=== PATIENT | male | born 1955 | race Caucasian/White ===

== ENCOUNTER 2018-02-04 11:26 | Emergency (ER) | payer OTHER ==
[2018-02-04] MEDS ORDERED: NA CHLORIDE 0.9% 1,000 ML ONE (12:04)
[2018-02-04 12:28] LABS: Absolute Monocytes 0.8 K/uL (0.1-1.3); Absolute Neutrophil 7.6 K/uL (1.8-8.0); Basophils % 0.7 % (0-1.3); Eosinophils % 0.2 % (0-4.4); Hematocrit 49.1 % (39.6-49.0); Lymphocytes % 10.8 % (15.3-44.8); MCH 32.9 pg (27.0-35.0); MCV 94.1 fL (80-100); MPV 9.1 fL (7.6-11.3); RBC Red Blood Cell Count 5.22 M/uL (4.33-5.43)
--- NOTE | 2018-02-04 12:33 | EKG ---
Test Date: 2018-02-04 Test Time: 12:01:13 Hide Salter: [place] MEASUREMENT RESULTS: Intervals: Rate: 103 PA: 148 QRSD: 76 QT: 310 QTc: 406 [place]: P: 64 PA: 148 QRS: 43 T: 87 INTERPRETIVE STATEMENTS: Sinus tachycardia Nonspecific T wave abnormality Abnormal ECG Compared to ECG 07/07/1993 21:32:00 T-wave abnormality now present Sinus rhythm no longer present ST (T wave) deviation no longer present Electronically Signed On 02-04-18 12:32:34 [employer]ER by Jose Luna
[2018-02-04 12:50] LABS: BUN Blood Urea Nitrogen 11 mg/dL (7-18); Bicarbonate 26 mmol/L (21-32); Glucose Level 280 mg/dL (74-106); Sodium Level 139 mmol/L (136-145); Troponin (Emerg Dept Use Only) < 0.02 ng/mL (0.0-0.045)
[2018-02-04] MEDS ORDERED: cloNIDine HCl 0.1 MG TAB ONE ×2 (13:09→14:53)
--- NOTE | 2018-02-04 15:40 | ER ---
Nurse's Notes [facility] Name: Hansel Mcgrath Age: 62 yrs Sex: Male : 1955 Arrival Date: 02/04/2018 Time: 11:32 Bed 18 Private MD: Diagnosis: Hypertension;Hyperglycemia, unspecified;Diabetes Presentation: 02/04 11:35 Presenting complaint: Patient states: Reports fatigue for 2 weeks. Went to be cleared aj to return to work and was sent to ER for HTN, elevated FSBS, and abnormal EKG. Transition of care: patient was not received from another setting of care. Onset of symptoms was January 21, 2018. Risk Assessment: Do you want to hurt yourself or someone else? Patient reports no desire to harm self or others. Initial Sepsis Screen: Does the patient meet any 2 criteria? No. Patient's initial sepsis screen is negative. Does the patient have a suspected source of infection? No. Patient's initial sepsis screen is negative. Care prior to arrival: None. 11:35 Method Of Arrival: Ambulatory 11:35 Acuity: DEBORAH 2 aj Triage Assessment: 11:37 General: Appears in no apparent distress. comfortable, Behavior is cooperative, aj anxious. Pain: Denies pain. Neuro: Level of Consciousness is awake, alert, obeys commands, Oriented to person, place, time, situation, Appropriate for age. Respiratory: Airway is patent Respiratory effort is even, unlabored, Respiratory pattern is regular, symmetrical. : No signs and/or symptoms were reported regarding the genitourinary system. Derm: Skin is intact, is healthy with good turgor, Skin is pink, warm \T\ dry. normal. Historical: - Allergies: 11:37 No Known Allergies; aj - Home Meds: 11:37 None [Active]; aj - PMHx: 11:37 None; aj - PSHx: 11:37 Right leg; aj - Immunization history:: Adult Immunizations up to date. - Social history:: Smoking status: Patient/guardian denies using tobacco, Patient uses alcohol, on a daily basis. - Ebola Screening: : Patient negative for fever greater than or equal to 101.5 degrees Fahrenheit, and additional compatible Ebola Virus Disease symptoms Patient denies exposure to infectious person Patient denies travel to an Ebola-affected area in the 21 days before illness onset No symptoms or risks identified at this time. - Family history:: not pertinent. - Hospitalizations: : No recent hospitalization is reported. Screenin:40 Abuse screen: Denies threats or abuse. Denies injuries from another. Nutritional hj screening: No deficits noted. Tuberculosis screening: No symptoms or risk factors identified. Fall Risk None identified. Assessment: 11:42 General: Appears in no apparent distress. uncomfortable, Behavior is calm, cooperative, hj appropriate for age. Pain: Denies pain. Neuro: Level of Consciousness is awake, alert, obeys commands, Oriented to person, place, time, situation, Appropriate for age. Cardiovascular: Capillary refill < 3 seconds Patient's skin is warm and dry. Respiratory: Airway is patent Respiratory effort is even, unlabored, Respiratory pattern is regular, symmetrical. GI: No signs and/or symptoms were reported involving the gastrointestinal system. : No signs and/or symptoms were reported regarding the genitourinary system. EENT: No signs and/or symptoms were reported regarding the EENT system. Derm: No signs and/or symptoms reported regarding the dermatologic system. Musculoskeletal: No signs and/or symptoms reported regarding the musculoskeletal system. 12:30 Reassessment: Patient and/or family updated on plan of care and expected duration. Pain hj level reassessed. Patient is alert, oriented x 3, equal unlabored respirations, skin warm/dry/pink. awaiting results and POC;. 13:00 Reassessment: medicated with BP meds;. hj 13:54 Reassessment: BP still elevated; MD aware;. hj 14:51 Reassessment: Patient and/or family updated on plan of care and expected duration. Pain hj level reassessed. Patient is alert, oriented x 3, equal unlabored respirations, skin warm/dry/pink. given another dose of BP meds; will cont to monitor;. Vital Signs: 11:37 BP 212 / 123; Pulse 111; Resp 20; Temp 98.2; Pulse Ox 95% on R/A; Weight 90.72 kg; aj Height 6 ft. 0 in. (182.88 cm); 12:56 BP 195 / 108; Pulse 109; Resp 18; Pulse Ox 100% on R/A; hj 13:45 BP 159 / 102; Pulse 90; Resp 18; Pulse Ox 97% on R/A; hj 14:04 BP 158 / 111; Pulse 76; Resp 18; Pulse Ox 100% on R/A; hj 14:17 BP 154 / 104; Pulse 75; Resp 18; Pulse Ox 99% on R/A; hj 14:51 BP 161 / 105; Pulse 73; Resp 18; Pulse Ox 98% on R/A; hj 15:16 BP 176 / 102; Pulse 74; Resp 18; Pulse Ox 100% on R/A; hj 16:17 BP 156 / 100; Pulse 75; Resp 18; Pulse Ox 100% on R/A; hj 11:37 Body Mass Index 27.12 (90.72 kg, 182.88 cm) aj ED Course: 11:32 Patient arrived in ED. mr 11:37 Triage completed. aj 11:37 Arm band placed on left wrist. Patient placed in an exam room. aj 11:39 Chuck Escalante, RN is Primary Nurse. hj 11:40 Virgil Lamb MD is Attending Physician. rn 11:40 Patient has correct armband on for positive identification. Bed in low position. Call hj light in reach. Side rails up X 1. 12:09 EKG done, by pharmacy technician per diem. reviewed by Virgil Lamb MD. at1 12:10 Initial lab(s) drawn, by la, sent to lab. Inserted saline lock: 20 gauge in right hj antecubital area, using aseptic technique. Blood collected. 16:16 No provider procedures requiring assistance completed. IV discontinued, intact, hj bleeding controlled, No redness/swelling at site. Pressure dressing applied. Administered Medications: 12:12 Drug: NS 0.9% 1000 ml Route: IV; Rate: 1000 ml; Site: right antecubital; hj 16:18 Follow up: IV Status: Completed infusion; IV Intake: 1000ml hj 12:52 CANCELLED (Duplicate Order): cloNIDine 0.2 mg PO once rn 12:52 Drug: cloNIDine 0.1 mg Route: PO; hj 13:02 Follow up: Response: No adverse reaction hj 14:41 Drug: cloNIDine 0.1 mg Route: PO; hj 14:47 Follow up: Response: No adverse reaction hj Point of Care Testing: Blood Glucose: 12:10 Blood Glucose: 233 mg/dL; hj Ranges: Intake: 16:18 IV: 1000ml; Total: 1000ml. hj Outcome: 15:39 Discharge ordered by . rn 16:16 Discharged to home ambulatory. hj 16:16 Condition: stable 16:16 Discharge instructions given to patient, Instructed on discharge instructions, follow up and referral plans. medication usage, Demonstrated understanding of instructions, follow-up care, medications, Prescriptions given X 2. 16:18 Patient left the ED. Signatures: Giovana Courtney RN Anita Chavira Roman, MD MD rn Gonzales, Amanda, asparagus buncher EKG Tat1 Chuck Escalante RN RN hj Corrections: (The following items were deleted from the chart) 14:17 13:45 BP 159 / 102; Pulse 102bpm; Resp 18bpm; Pulse Ox 97% RA; hj hj 14:17 14:04 BP 158 / 111; Pulse 95bpm; Resp 18bpm; Pulse Ox 100% RA; hj hj
--- NOTE | 2018-02-04 15:41 | EDPHYS ---
Physician Documentation [facility] Name: Hansel Mcgrath Age: 62 yrs Sex: Male : 1955 Arrival Date: 02/04/2018 Time: 11:32 Bed 18 Private MD: ED Physician Virgil Lamb HPI: 02/04 12:17 This 62 yrs old Male presents to ER via Ambulatory with complaints of High rn Blood Pressure, Abnormal Lab Results. 12:17 The patient has elevated blood pressure and discovered this at a physician's office. rn Onset: The symptoms/episode began/occurred at an unknown time. Severity of symptoms: At its worst the blood pressure was moderate, in the emergency department the blood pressure is unchanged. The patient has experienced similar episodes in the past. Reports has been out of work for 2 weeks, went to medical for clearance to return, told BP was too high, Fasting blood sugar was > 200, and reports generalized weakness and fatigue for 3 weeks now. No known medical problems. Doesn't take any meds. Reports decreased urinary output.. Historical: - Allergies: 11:37 No Known Allergies; aj - Home Meds: 11:37 None [Active]; aj - PMHx: 11:37 None; aj - PSHx: 11:37 Right leg; aj - Immunization history:: Adult Immunizations up to date. - Social history:: Smoking status: Patient/guardian denies using tobacco, Patient uses alcohol, on a daily basis. - Ebola Screening: : Patient negative for fever greater than or equal to 101.5 degrees Fahrenheit, and additional compatible Ebola Virus Disease symptoms Patient denies exposure to infectious person Patient denies travel to an Ebola-affected area in the 21 days before illness onset No symptoms or risks identified at this time. - Family history:: not pertinent. - Hospitalizations: : No recent hospitalization is reported. ROS: 12:17 Constitutional: Negative for fever, chills, and weight loss, Eyes: Negative for injury, rn pain, redness, and discharge, Neck: Negative for injury, pain, and swelling, Cardiovascular: Negative for chest pain, palpitations, and edema, Respiratory: Negative for shortness of breath, cough, wheezing, and pleuritic chest pain, Abdomen/GI: Negative for abdominal pain, nausea, vomiting, diarrhea, and constipation, MS/Extremity: Negative for injury and deformity, Skin: Negative for injury, rash, and discoloration, Neuro: + generalized weakness, no seizure Exam: 12:17 Constitutional: This is a well developed, well nourished patient who is awake, alert, rn and in no acute distress. Head/Face: Normocephalic, atraumatic. Eyes: Pupils equal round and reactive to light, extra-ocular motions intact. Lids and lashes normal. Conjunctiva and sclera are non-icteric and not injected. Cornea within normal limits. Periorbital areas with no swelling, redness, or edema. ENT: dry MM Cardiovascular: tachycardic, regular, no murmur Respiratory: Lungs have equal breath sounds bilaterally, clear to auscultation. No increased work of breathing, no retractions or nasal flaring. Abdomen/GI: soft, non-tender Skin: Warm, dry with normal turgor. Normal color with no rashes, no lesions, and no evidence of cellulitis. MS/ Extremity: Pulses equal, no cyanosis. Neurovascular intact. Full, normal range of motion. Equal circumference. Neuro: Awake and alert, GCS 15, oriented to person, place, time, and situation. Cranial nerves II-XII grossly intact. Motor strength 5/5 in all extremities. Sensory grossly intact. Vital Signs: 11:37 BP 212 / 123; Pulse 111; Resp 20; Temp 98.2; Pulse Ox 95% on R/A; Weight 90.72 kg; aj Height 6 ft. 0 in. (182.88 cm); 12:56 BP 195 / 108; Pulse 109; Resp 18; Pulse Ox 100% on R/A; hj 13:45 BP 159 / 102; Pulse 90; Resp 18; Pulse Ox 97% on R/A; hj 14:04 BP 158 / 111; Pulse 76; Resp 18; Pulse Ox 100% on R/A; hj 14:17 BP 154 / 104; Pulse 75; Resp 18; Pulse Ox 99% on R/A; hj 14:51 BP 161 / 105; Pulse 73; Resp 18; Pulse Ox 98% on R/A; hj 15:16 BP 176 / 102; Pulse 74; Resp 18; Pulse Ox 100% on R/A; hj 16:17 BP 156 / 100; Pulse 75; Resp 18; Pulse Ox 100% on R/A; hj 11:37 Body Mass Index 27.12 (90.72 kg, 182.88 cm) aj MDM: 11:40 Patient medically screened. rn 15:35 Differential diagnosis: Malignant HTN, Offered admission for blood pressure control and rn new onset diabetes, although no diabetic emergency, patient prefers to go home, states when told to come here he thought he would prefer to go to pcp anyway for further management, will dc with metformin and anti-hypertensive. Return precautions given and understood. Data reviewed: vital signs, nurses notes, lab test result(s), EKG, radiologic studies, and as a result, I will discharge patient. Counseling: I had a detailed discussion with the patient and/or guardian regarding: the historical points, exam findings, and any diagnostic results supporting the discharge/admit diagnosis, lab results, the need for outpatient follow up, to return to the emergency department if symptoms worsen or persist or if there are any questions or concerns that arise at home. Special discussion: I discussed with the patient/guardian in detail that at this point there is no indication for admission to the hospital. It is understood, however, that if the symptoms persist or worsen the patient needs to return immediately for re-evaluation. 15:35 ED course: Negative troponin, no chest pain, simply difficult to control blood rn pressure. . 02/04 11:49 Order name: CBC with Diff; Complete Time: 12:50 rn 02/04 11:49 Order name: Basic Metabolic Panel; Complete Time: 13:15 rn 02/04 11:49 Order name: Troponin (emerg Dept Use Only); Complete Time: 13:15 rn 02/04 11:49 Order name: Ketone, Serum; Complete Time: 13:15 rn 02/04 11:55 Order name: Hemoglobin A1c rn 02/04 11:49 Order name: IV Start; Complete Time: 12:12 rn 02/04 11:49 Order name: EKG; Complete Time: 11:50 rn 02/04 15:10 Order name: Glucose, Ancillary Testing; Complete Time: 15:35 EDMS 02/04 11:49 Order name: EKG - Nurse/Tech; Complete Time: 12:12 rn 02/04 11:55 Order name: Glucose Level; Complete Time: 12:12 rn Administered Medications: 12:12 Drug: NS 0.9% 1000 ml Route: IV; Rate: 1000 ml; Site: right antecubital; 16:18 Follow up: IV Status: Completed infusion; IV Intake: 1000ml 12:52 CANCELLED (Duplicate Order): cloNIDine 0.2 mg PO once rn 12:52 Drug: cloNIDine 0.1 mg Route: PO; hj 13:02 Follow up: Response: No adverse reaction hj 14:41 Drug: cloNIDine 0.1 mg Route: PO; hj 14:47 Follow up: Response: No adverse reaction Point of Care Testing: Blood Glucose: 12:10 Blood Glucose: 233 mg/dL; Ranges: Critical Glucose Levels:Adult <50 mg/dl or >400 mg/dl <40 mg/dl or >180 mg/dl Disposition: 02/04/18 15:39 Discharged to Home. Impression: Hypertension, Hyperglycemia, unspecified, Diabetes. - Condition is Stable. - Discharge Instructions: Hyperglycemia, Blood Glucose Monitoring, Adult. - Prescriptions for Metformin 500 mg Oral Tablet - take 1 tablet by ORAL route once daily for 7 days Then take 1 tablet with morning meals AND evening meals; 60 tablet. Lisinopril 10 mg Oral Tablet - take 1 tablet by ORAL route once daily As needed; 30 tablet. - Medication Reconciliation Form, Thank You Letter, Antibiotic Education, Prescription Opioid Use, Work release form form. - Follow up: Private Physician; When: As needed; Reason: Recheck today's complaints, Re-evaluation by your physician. - Problem is new. - Symptoms have improved. Signatures: Dispatcher [employer] [facility] Giovana Courtney RN RN aj Nieto, Roman, MD MD rn Joaquin, Henry, RN RN hj Corrections: (The following items were deleted from the chart) 11:51 11:50 HEMOGLOBIN A1C+CHEM A1C.LAB.BRZ ordered. [facility] 12:52 12:52 cloNIDine 0.2 mg PO once ordered. rn rn 16:18 15:39 02/04/2018 15:39 Discharged to Home. Impression: Hypertension; Hyperglycemia, hj unspecified; Diabetes. Condition is Stable. Forms are Medication Reconciliation Form, Thank You Letter, Antibiotic Education, Prescription Opioid Use. Follow up: Private Physician; When: As needed; Reason: Recheck today's complaints, Re-evaluation by your physician. Problem is new. Symptoms have improved. rn
[2018-02-04 16:49] VITALS: TEMP 98.2
[2018-02-04 16:56] VITALS: O2SAT 100
[2018-02-04 16:57] VITALS: BP 156/100
== END 2018-02-04 16:18 | disposition home or self-care (01) ==
LOC: ER 11:26
DX: E11.65 Type 2 diabetes mellitus with hyperglycemia (principal)
CPT/HCPCS: 36415; 80048; 82010; 82962; 84484; 85025; 93005; 96360; 96361; 99284; J7030